=== PATIENT | male | born 1935 | race Caucasian/White ===

== ENCOUNTER 2016-05-22 16:52 | Inpatient (IN) | payer OTHER, MEDICARE ==
[~2016-05-22] VITALS: Ht 175.3 cm; Wt 97.6 kg
[2016-05-22 17:10] LABS: CREATININE 1.1 mg/dL (0.6-1.3); POTASSIUM 4.6 mEq/L (3.7-5.4)
[2016-05-22 17:12] LABS: HEMATOCRIT 46.6 % (38.0-50.0); MCH 26.3 PG (29.0-34.0); MCHC 31.3 G/DL (30.0-36.0); MEAN PLAT.VOLUME 9.9 uM^3 (9.0-12.4); PLATELET COUNT 310 K/uL (156-360); RBC DIS.WIDTH-CV 16.7 % (11.8-14.6); RBC DIS.WIDTH-SD 51.5 % (39-53); RED BLOOD COUNT 5.55 M/uL (4.00-5.50); WHITE BLOOD COUNT 23.3 K/uL (4.1-10.2)
[2016-05-22 17:26] LABS: INTER. NORMALIZED RATIO 2.7; PTT 37.6 (25-32)
[2016-05-22 17:30] LABS: ADD MIUA? NO; BILIRUBIN NEGATIVE; BLOOD NEGATIVE; COLOR YELLOW ((YELLOW)); GLUCOSE (STRIP) NEGATIVE; KETONES NEGATIVE; LEUKOCYTES NEGATIVE; NITRITE NEGATIVE; PH, URINE 7.5 (5-8); PROTEIN (STRIP) NEGATIVE; SPECIFIC GRAVITY 1.014 (1.000-1.030); UCUL ADDED? NO; UROBILINOGEN 0.2 MG/DL (0.2-1.0)
[2016-05-22 17:32] LABS: TROP-I INTERPRETATION NEGATIVE; TROPONIN-I 0.21 ng/mL (0.0-0.30)
[2016-05-22 18:05] LABS: BASE EXCESS -5.2 mEq/L (-3 to +3); BICARBONATE 24.4 mEq/L (22-26); CARBOXY HGB 2.7 % (0-5); METHEMOGLOBIN 1.1 % (0-1.5); PCO2 64 mm Hg (35-45); PO2 82 mm Hg (80-100)
[2016-05-22 18:05] LABS: BASOPHIL COUNT 0.1 K/uL (0-0.1); EOSINOPHIL (%) 2.5 % (0-5); EOSINOPHIL COUNT 0.6 K/uL (0-0.3); HEMATOLOGY COMMENT 1 SMEAR COMPATIBLE; IMMATURE GRANULOCYTE (%) 1.4 % (0.0-0.7); IMMATURE GRANULOCYTE COUNT 3.2 K/uL; LYMPHOCYTE COUNT 3.7 K/uL (1.0-2.8); MONOCYTE (%) 5.1 % (3-12); MONOCYTE COUNT 1.2 K/uL (0-0.8); NEUTROPHIL (%) 74.7 % (45-76); NEUTROPHIL COUNT 17.4 K/uL (1.8-6.4); PLAT.SUFFICIENCY NORMAL
[2016-05-22 18:06] LABS: COMMENTS - BLOOD GASES A+C+; DEVICE 840; FI02 100 %; MECHANICAL RATE 16 resp/min; MODE AC; PEEP 5 CM/H20; SITE LR; TIDAL VOLUME 500 ML; TOTAL RESP RATE 16 resp/min; pH 7.19 (7.35-7.45)
[2016-05-22 18:07] LABS: AMPHETAMINE NEGATIVE (500 ng/mL); BARBITURATES NEGATIVE (200 ng/mL); BENZODIAZEPINES NEGATIVE (150 ng/mL); COCAINE NEGATIVE (150 ng/mL); METHADONE NEGATIVE (200 ng/mL); METHAMPHETAMINE NEGATIVE (500 ng/mL); OPIATES (MORPHINE) NEGATIVE (100 ng/mL); OXYCODONE NEGATIVE (100 ng/mL); PHENCYCLIDINE NEGATIVE (25 ng/mL); PROPOXYPHENE NEGATIVE (300 ng/mL); THC CANNABINOIDS NEGATIVE (50 ng/mL); TRICYCLIC ANTIDEPRESSANTS NEGATIVE (300 ng/mL)
[2016-05-22 18:08] LABS: INTERNAL CONTROLS VALID? YES
[2016-05-22] MEDS ORDERED: SPIRIVA1 INHALATI IH (18:30)
[2016-05-22] MEDS ORDERED: DIGOXIN125 MCG PO (18:30)
[2016-05-22] MEDS ORDERED: TAMSULOSIN HCL0.4 MG PO (18:30)
[2016-05-22] MEDS ORDERED: ADVAIR 250/501 DISK IH (18:30)
[2016-05-22] MEDS ORDERED: SPIRONOLACTONE25 MG PO (18:31)
[2016-05-22] MEDS ORDERED: FUROSEMIDE40 MG PO (18:31)
[2016-05-22] MEDS ORDERED: ATORVASTATIN CA20 MG PO (18:31)
[2016-05-22] MEDS ORDERED: ALLOPURINOL100 MG PO (18:31)
[2016-05-22] MEDS ORDERED: FINASTERIDE5 MG PO (18:32)
[2016-05-22] MEDS ORDERED: WARFARIN SODIUM1 MG PO (18:32)
[2016-05-22] MEDS ORDERED: METOPROLOL SUC100 MG PO (18:32)
[2016-05-22] MEDS ORDERED: REFRESH TEARS15 ML BOTH EYES (18:33)
[2016-05-22] MEDS ORDERED: VITAMIN D31000 UNI2 PO (18:33)
[2016-05-22] MEDS ORDERED: ASPIR-LOW81 MG PO (18:35)
[2016-05-22 19:31] LABS: AMYLASE 48 IU/L (1-118); CHLORIDE 112 mEq/L (99-109); POTASSIUM 3.5 mEq/L (3.7-5.4); SODIUM 139 mEq/L (136-147)
[2016-05-22 19:33] LABS: GLUCOSE 138 mg/dL (70-99)
[2016-05-22 19:34] LABS: ANION GAP 13 MEQ/L (2-14)
[2016-05-22 19:36] LABS: SERUM ETHYL ALCOHOL < 10 mg/dL
[2016-05-22 19:37] LABS: GFR ESTIMATE (CALCULATED) > 59 mL/min/; UREA NITROGEN (BUN) 15 mg/dL (9-23)
[2016-05-22 19:40] LABS: CREATINE KINASE 51 IU/L (1-294); LIPASE 33 U/L (1.0-51.0)
[2016-05-22 21:20] VITALS: BP 123/74
[2016-05-22 21:30] VITALS: BP 123/74
[2016-05-22 22:30] VITALS: BP 106/47
[2016-05-22 22:55] LABS: METH RESISTANT S AUREUS PCR NEGATIVE (NEGATIVE)
[2016-05-22 22:59] LABS: PROBE CHECK PASS; SPECIMEN PROCESSING CONTROL PASS
[2016-05-22 23:00] VITALS: BP 103/54
[2016-05-23] VITALS (20 sets, daily range): BP systolic 80–126; BP diastolic 49–81
[2016-05-23 00:51] LABS: TROP-I INTERPRETATION POSITIVE
[2016-05-23 00:52] LABS: TROPONIN-I 2.11 ng/mL (0.0-0.30)
[2016-05-23 00:54] LABS: TOTAL CK 207 IU/L (1-294)
[2016-05-23 00:59] LABS: CK-MB 15.3 ng/mL (0.0-4.9)
[2016-05-23 01:04] LABS: CREATINE KINASE 207 IU/L (1-294)
[2016-05-23 02:19] LABS: MAGNESIUM 1.8 mg/dL (1.3-2.7)
[2016-05-23 05:42] LABS: BASE EXCESS -5.5 mEq/L (-3 to +3); BICARBONATE 21.9 mEq/L (22-26); CARBOXY HGB 2.9 % (0-5); METHEMOGLOBIN 1.4 % (0-1.5); PO2 76 mm Hg (80-100)
[2016-05-23 05:43] LABS: COMMENTS - BLOOD GASES C+A+; DEVICE VENTILATOR; FI02 100 %; MECHANICAL RATE 16 resp/min; MODE AC; PCO2 50 mm Hg (35-45); PEEP 8 CM/H20; SITE RR; TIDAL VOLUME 500 ML; TOTAL RESP RATE 28 resp/min; pH 7.25 (7.35-7.45)
[2016-05-23 07:18] LABS: INTER. NORMALIZED RATIO 2.7; PROTHROMBIN TIME 28.8 (9.2-11.2)
[2016-05-23 07:23] LABS: EOSINOPHIL (%) 0.1 % (0-5); HEMATOCRIT 40.9 % (38.0-50.0); IMMATURE GRANULOCYTE (%) 0.5 % (0.0-0.7); IMMATURE GRANULOCYTE COUNT 0.1 K/uL; LYMPHOCYTE COUNT 0.6 K/uL (1.0-2.8); MCH 26.1 PG (29.0-34.0); MCHC 30.3 G/DL (30.0-36.0); MCV 86.1 FL (86-99); MONOCYTE (%) 7.8 % (3-12); MONOCYTE COUNT 1.5 K/uL (0-0.8); NEUTROPHIL (%) 88.6 % (45-76); NEUTROPHIL COUNT 17.1 K/uL (1.8-6.4); RBC DIS.WIDTH-CV 16.7 % (11.8-14.6); RBC DIS.WIDTH-SD 52.4 % (39-53); RED BLOOD COUNT 4.75 M/uL (4.00-5.50); WHITE BLOOD COUNT 19.3 K/uL (4.1-10.2)
[2016-05-23 07:33] LABS: ALKALINE PHOSPHATASE 84 IU/L (3-129); ANION GAP 9 MEQ/L (2-14); CHLORIDE 107 MEQ/L (99-109); CREATINE KINASE 189 IU/L (1-294); DIRECT BILIRUBIN 0.4 mg/dL (0.0-0.3); GFR ESTIMATE (CALCULATED) > 59 mL/min/; GLUCOSE 134 mg/dL (70-99); POTASSIUM 5.7 MEQ/L (3.7-5.4); SAMPLE HEMOLYSIS CHECK 0; SAMPLE ICTERIC CHECK 0; SAMPLE LIPEMIA CHECK 0; SODIUM 137 MEQ/L (136-147); TOTAL BILIRUBIN 1.9 MG/DL (0.0-1.0); TOTAL CK 189 IU/L (1-294); UREA NITROGEN (BUN) 23 mg/dL (9-23)
[2016-05-23 07:42] LABS: TROP-I INTERPRETATION POSITIVE
[2016-05-23 07:45] LABS: TROPONIN-I 1.32 ng/mL (0.0-0.30)
[2016-05-23 08:05] LABS: CK-MB 17.1 ng/mL (0.0-4.9)
[2016-05-23 08:26] LABS: MEAN PLAT.VOLUME 10.3 uM^3 (9.0-12.4); PLAT.SUFFICIENCY ADEQUATE; PLATELET COUNT 236 K/uL (156-360); USER ID STC
[2016-05-23 09:44] LABS: PTT 78.1 (25-32)
[2016-05-23 14:11] LABS: CREATINE KINASE 159 IU/L (1-294); TOTAL CK 159 IU/L (1-294)
[2016-05-23 14:16] LABS: TROP-I INTERPRETATION POSITIVE
[2016-05-23 14:17] LABS: CK-MB 12.9 ng/mL (0.0-4.9)
[2016-05-23 14:22] LABS: TROPONIN-I 0.82 ng/mL (0.0-0.30)
[2016-05-24] VITALS (21 sets, daily range): BP systolic 70–121; BP diastolic 40–57
[2016-05-24 05:53] LABS: INTER. NORMALIZED RATIO 3.8; PROTHROMBIN TIME 40.4 (9.2-11.2)
[2016-05-24 05:56] LABS: PTT 44.9 (25-32)
[2016-05-24 06:03] LABS: HEMATOCRIT 32.2 % (38.0-50.0); MCH 25.7 PG (29.0-34.0); MCHC 29.8 G/DL (30.0-36.0); MCV 86.3 FL (86-99); MEAN PLAT.VOLUME 10.4 uM^3 (9.0-12.4); PLATELET COUNT 174 K/uL (156-360); RBC DIS.WIDTH-SD 53.7 % (39-53)
[2016-05-24 06:06] LABS: RED BLOOD COUNT 3.73 M/uL (4.00-5.50); WHITE BLOOD COUNT 12.6 K/uL (4.1-10.2)
[2016-05-24 06:07] LABS: ANION GAP 6 MEQ/L (2-14); CHLORIDE 108 MEQ/L (99-109); GFR ESTIMATE (CALCULATED) > 59 mL/min/; GLUCOSE 135 mg/dL (70-99); POTASSIUM 5.1 MEQ/L (3.7-5.4); SAMPLE HEMOLYSIS CHECK 0; SAMPLE ICTERIC CHECK 0; SAMPLE LIPEMIA CHECK 0; SODIUM 138 MEQ/L (136-147); UREA NITROGEN (BUN) 20 mg/dL (9-23)
[2016-05-24 10:13] LABS: BASE EXCESS -2.4 mEq/L (-3 to +3); BICARBONATE 23.7 mEq/L (22-26); CARBOXY HGB 2.3 % (0-5); METHEMOGLOBIN 1.2 % (0-1.5); PCO2 46 mm Hg (35-45); PO2 126 mm Hg (80-100); pH 7.32 (7.35-7.45)
[2016-05-24 10:14] LABS: COMMENTS - BLOOD GASES C+; DEVICE 840 VENTILATOR; FI02 80 %; INSPIRATION TIME 0.8 seconds; MECHANICAL RATE 22 resp/min; MODE AC/VC+; PEEP 10 CM/H20; SITE ALINE; TIDAL VOLUME 400 ML; TOTAL RESP RATE 27 resp/min
[2016-05-24 10:34] LABS: COLOR RED ((YELLOW))
[2016-05-24 10:35] LABS: ADD MIUA? YES; BILIRUBIN NEGATIVE; BLOOD LARGE; GLUCOSE (STRIP) NEGATIVE; KETONES NEGATIVE; LEUKOCYTES NEGATIVE; NITRITE NEGATIVE; PROTEIN (STRIP) 30; UROBILINOGEN 0.2 MG/DL (0.2-1.0)
[2016-05-24 10:59] LABS: RED BLOOD CELLS TNTC /HPF (0-5); UCUL ADDED? YES
[2016-05-24 11:03] LABS: DIGOXIN 0.6 ng/mL (0.8-2.0)
[2016-05-24 23:55] LABS: BASE EXCESS -0.5 mEq/L (-3 to +3); BICARBONATE 24.9 mEq/L (22-26); CARBOXY HGB 2.3 % (0-5); METHEMOGLOBIN 1.4 % (0-1.5); PCO2 43 mm Hg (35-45); pH 7.37 (7.35-7.45)
[2016-05-24 23:56] LABS: COMMENTS - BLOOD GASES C+; DEVICE 840; FI02 60 %; INSPIRATION TIME 1.1 seconds; MECHANICAL RATE 15 resp/min; MODE AC/VC+; PEEP 12 CM/H20; PO2 74 mm Hg (80-100); SITE A-LINE; TIDAL VOLUME 600 ML; TOTAL RESP RATE 19 resp/min
[2016-05-25] VITALS (21 sets, daily range): BP systolic 91–148; BP diastolic 45–71
[2016-05-25 05:51] LABS: HEMATOCRIT 31.6 % (38.0-50.0); MCH 25.7 PG (29.0-34.0); MCHC 30.1 G/DL (30.0-36.0); MCV 85.6 FL (86-99); MEAN PLAT.VOLUME 10.3 uM^3 (9.0-12.4); PLATELET COUNT 207 K/uL (156-360); RBC DIS.WIDTH-CV 16.7 % (11.8-14.6); RBC DIS.WIDTH-SD 52.4 % (39-53); RED BLOOD COUNT 3.69 M/uL (4.00-5.50)
[2016-05-25 06:00] LABS: PROTHROMBIN TIME 31.6 (9.2-11.2); PTT 42.5 (25-32)
[2016-05-25 06:11] LABS: EOSINOPHIL (%) 0.5 % (0-5); EOSINOPHIL COUNT 0.1 K/uL (0-0.3); IMMATURE GRANULOCYTE (%) 0.5 % (0.0-0.7); IMMATURE GRANULOCYTE COUNT 0.1 K/uL; LYMPHOCYTE COUNT 0.6 K/uL (1.0-2.8); MONOCYTE COUNT 1.5 K/uL (0-0.8); NEUTROPHIL (%) 84.8 % (45-76); NEUTROPHIL COUNT 12.7 K/uL (1.8-6.4)
[2016-05-25 06:16] LABS: ANION GAP 6 MEQ/L (2-14); CHLORIDE 108 MEQ/L (99-109); GFR ESTIMATE (CALCULATED) > 59 mL/min/; GLUCOSE 116 mg/dL (70-99); POTASSIUM 4.8 MEQ/L (3.7-5.4); SAMPLE HEMOLYSIS CHECK 0; SAMPLE ICTERIC CHECK 0; SAMPLE LIPEMIA CHECK 0; SODIUM 139 MEQ/L (136-147); UREA NITROGEN (BUN) 21 mg/dL (9-23)
[2016-05-26] VITALS (27 sets, daily range): BP systolic 63–179; BP diastolic 33–77
[2016-05-26 05:18] LABS: BASE EXCESS 2.8 mEq/L (-3 to +3); BICARBONATE 27.2 mEq/L (22-26); CARBOXY HGB 2.8 % (0-5); METHEMOGLOBIN 1.5 % (0-1.5); PCO2 40 mm Hg (35-45); pH 7.44 (7.35-7.45)
[2016-05-26 05:19] LABS: COMMENTS - BLOOD GASES A+C+; DEVICE HHFNC WITH NRB MASK; FI02 100 %; O2 FLOW 70 L/MIN; PO2 50 mm Hg (80-100); SITE RR
[2016-05-26 05:37] LABS: HEMATOCRIT 35.9 % (38.0-50.0); MCH 25.7 PG (29.0-34.0); MCHC 30.1 G/DL (30.0-36.0); MCV 85.3 FL (86-99); MEAN PLAT.VOLUME 9.8 uM^3 (9.0-12.4); PLATELET COUNT 241 K/uL (156-360); RBC DIS.WIDTH-CV 16.8 % (11.8-14.6); RBC DIS.WIDTH-SD 51.8 % (39-53); RED BLOOD COUNT 4.21 M/uL (4.00-5.50); WHITE BLOOD COUNT 18.2 K/uL (4.1-10.2)
[2016-05-26 06:07] LABS: ANION GAP 11 MEQ/L (2-14); CHLORIDE 107 MEQ/L (99-109); GFR ESTIMATE (CALCULATED) > 59 mL/min/; GLUCOSE 99 mg/dL (70-99); POTASSIUM 4.5 MEQ/L (3.7-5.4); SAMPLE HEMOLYSIS CHECK 0; SAMPLE ICTERIC CHECK 1; SAMPLE LIPEMIA CHECK 0; SODIUM 144 MEQ/L (136-147); UREA NITROGEN (BUN) 23 mg/dL (9-23)
[2016-05-26 06:36] LABS: INTER. NORMALIZED RATIO 1.7; PROTHROMBIN TIME 18.1 (9.2-11.2)
[2016-05-26 07:33] LABS: DIGOXIN 2.5 ng/mL (0.8-2.0)
[2016-05-26 07:37] LABS: BASE EXCESS -3.6 mEq/L (-3 to +3); BICARBONATE 26.5 mEq/L (22-26); CARBOXY HGB 2.9 % (0-5); COMMENTS - BLOOD GASES C+A-N/A; METHEMOGLOBIN 1.4 % (0-1.5); PCO2 76 mm Hg (35-45); PO2 62 mm Hg (80-100); SITE RR
[2016-05-26 07:38] LABS: DEVICE 840 VENTILATOR; FI02 100 %; MECHANICAL RATE 16 resp/min; MODE AC; PEEP 5 CM/H20; TIDAL VOLUME 380 ML; TOTAL RESP RATE 18 resp/min; pH 7.15 (7.35-7.45)
[2016-05-26 09:55] LABS: TROP-I INTERPRETATION NEGATIVE; TROPONIN-I 0.27 ng/mL (0.0-0.30)
[2016-05-26 10:16] LABS: TROP-I INTERPRETATION POSITIVE
[2016-05-26 10:20] LABS: TROPONIN-I 0.69 ng/mL (0.0-0.30)
[2016-05-26 10:21] LABS: POINT-OF-CARE METER ID UU13113731
[2016-05-26 11:04] LABS: BASE EXCESS -9.8 mEq/L (-3 to +3); METHEMOGLOBIN 1.3 % (0-1.5); PO2 73 mm Hg (80-100)
[2016-05-26 11:05] LABS: BICARBONATE 20.5 mEq/L (22-26); COMMENTS - BLOOD GASES C+; DEVICE 840 VENTILATOR; FI02 100 %; MECHANICAL RATE 20 resp/min; MODE AC; PCO2 69 mm Hg (35-45); PEEP 15 CM/H20; SITE LT FEMORAL ALINE; TIDAL VOLUME 600 ML; TOTAL RESP RATE 20 resp/min
[2016-05-26 11:06] LABS: pH 7.08 (7.35-7.45)
== END 2016-05-26 13:30 | DRG 189 ==
LOC: EME → EDBD 16:52 → 4WEST 18:56 → EDOF 18:56 → 4WEST 18:56
PROVIDERS: Emergency Medicine; Internal Medicine Critical Care Medicine; Internal Medicine Nephrology; Surgery
PROC: 0BH17EZ Insertion of Endotracheal Airway into Trachea, Via Natural or Artificial Opening (ICD-10-PCS; principal; 2016-05-22)
PROC: 5A12012 Performance of Cardiac Output, Single, Manual (ICD-10-PCS; principal; 2016-05-22)
PROC: 5A0945Z Assistance with Respiratory Ventilation, 24-96 Consecutive Hours (ICD-10-PCS; principal; 2016-05-22)
PROC: 02HV33Z Insertion of Infusion Device into Superior Vena Cava, Percutaneous Approach (ICD-10-PCS; 2016-05-23)
PROC: 04HY32Z Insertion of Monitoring Device into Lower Artery, Percutaneous Approach (ICD-10-PCS; 2016-05-23)
PROC: 3E1F88Z Irrigation of Respiratory Tract using Irrigating Substance, Via Natural or Artificial Opening Endoscopic (ICD-10-PCS; 2016-05-26)
PROC: 5A12012 Performance of Cardiac Output, Single, Manual (ICD-10-PCS; 2016-05-26)
PROC: 04HY32Z Insertion of Monitoring Device into Lower Artery, Percutaneous Approach (ICD-10-PCS; 2016-05-26)
PROC: 02HV33Z Insertion of Infusion Device into Superior Vena Cava, Percutaneous Approach (ICD-10-PCS; 2016-05-26)
DX: J96.01 Acute respiratory failure with hypoxia (principal); I46.9 Cardiac arrest, cause unspecified; R57.9 Shock, unspecified; J18.9 Pneumonia, unspecified organism; J81.1 Chronic pulmonary edema; K29.71 Gastritis, unspecified, with bleeding; J44.0 Chronic obstructive pulmonary disease with (acute) lower respiratory infection; E87.2 Acidosis; J84.10 Pulmonary fibrosis, unspecified; T83.89XA Other specified complication of genitourinary prosthetic devices, implants and grafts, initial encounter; R31.9 Hematuria, unspecified; E87.8 Other disorders of electrolyte and fluid balance, not elsewhere classified; E87.6 Hypokalemia; E83.51 Hypocalcemia; Z95.1 Presence of aortocoronary bypass graft; I48.91 Unspecified atrial fibrillation; Z95.5 Presence of coronary angioplasty implant and graft; Z95.2 Presence of prosthetic heart valve; M10.9 Gout, unspecified; I25.10 Atherosclerotic heart disease of native coronary artery without angina pectoris; Z87.891 Personal history of nicotine dependence; R79.1 Abnormal coagulation profile; T45.515A Adverse effect of anticoagulants, initial encounter
CPT/HCPCS: 36600; 71010; 80047; 80048; 80048 91; 80076; 80162; 81003; 82040; 82150; 82330; 82533 91; 82550; 82550 91; 82553; 82803; 82948; 83605; 83690; 83735; 84100; 84484; 85025; 85027; 85610; 85730; 86850; 86900; 86901; 87040; 87070; 87086; 87205; 87641; 92950; 93005; 93306; 94002; 94003; 94640; 94640 76; 94799; 99202; 99281; 99285; C1751; C1760; C1769; C1887; C1894; C9113; G0480; J0461; J0610; J1160; J1644; J1940; J1956; J2250; J2704; J2930; J3010; J3475; J3480; J7030; J7050; J7120